=== PATIENT | male | born 1945 ===

== ENCOUNTER → 2021-07-05 | Outpatient (CLI) | payer OTHER | LOC: SJCVC 13:43 | PROVIDERS: ATTEND Internal Medicine Cardiovascular Disease | DX: I48.21 Permanent atrial fibrillation (principal); I42.9 Cardiomyopathy, unspecified; N40.0 Benign prostatic hyperplasia without lower urinary tract symptoms; M10.9 Gout, unspecified; I50.9 Heart failure, unspecified; Z95.0 Presence of cardiac pacemaker; Z95.810 Presence of automatic (implantable) cardiac defibrillator; Z88.5 Allergy status to narcotic agent; Z88.8 Allergy status to other drugs, medicaments and biological substances; Z79.899 Other long term (current) drug therapy; Z72.89 Other problems related to lifestyle ==